=== PATIENT | male | born 1965 | race Caucasian/White ===

== ENCOUNTER 2017-03-14 14:12 | Emergency (ER) | payer BC ==
[2017-03-14] MEDS: DILTIAZEM HCL 25 MG/ 5ML VIAL IVP ONE (14:15)
--- NOTE | 2017-03-14 14:15 | ED Physician Documentation ---
General Adult - HISTORIAN Historian: patient - HPI Stated Complaint: tachycardia Chief Complaint: General Adult Onset: minutes Timing: still present Severity: moderate Further Comments: yes (Pt is a 52 yo male with hx afib with rvr who presents with tachcardia. Pt is lightheaded with near syncope at time of arrival and HR= 150's. No chest pain. Pt is sob. No diaphoresis, n/v. Pt appears anxious.) - ROS CONST: other (lightheaded) EYES/ENT: none CVS/RESP: other (tachycardia) GI/: none MS/SKIN/LYMPH: none - PAST HX Past History: other (afib with RVR) Surgeries/Procedures: other (hernia repair, ortho surgery) Allergies/Adverse Reactions: Allergies Allergy/AdvReac Type Severity Reaction Status Date / Time No Known Allergies Allergy Unverified 03/14/17 14:39 Home Medications: Ambulatory Orders Medication Instructions Recorded Metoprolol Succinate [Toprol XL] 25 mg PO DAILY 03/14/17 Propafenone HCl [Rythmol] 150 mg PO DAILY 03/14/17 Rivaroxaban [Xarelto] 20 mg PO PRN 03/14/17 - SOCIAL HX Smoking History: cigarettes - FAMILY HX Family History: No - REVIEWED ASSESSMENTS Nursing Assessment Reviewed: Yes Vitals Reviewed: Yes Progress - Progress Progress: Cardizem 20 mg IV Then Cardizem drip @ 5 mg/hr NS 500 cc IVF KCl 20 mEq po x 1 HR=90's pt comfortable Transfer to . Hosp. Dr. Gavin. - EKG/XRAY/CT EKG: rhythm (Afib with RVR; XM=[id number]; non-specific ST, T-wave changes.) XRAY: chest (No acute pulmonary process.) General Adult Physical Exam - PHYSICAL EXAM GENERAL APPEARANCE: moderate distress EENT: pharynx normal NECK: normal inspection, supple RESPIRATORY: no resp distress, chest non-tender, breath sounds normal CVS: no murmur, tachycardia ABDOMEN: soft, no organomegaly, normal bowel sounds BACK: normal inspection, no CVA tenderness SKIN: warm/dry, normal color EXTREMITIES: non-tender, normal range of motion, no evidence of injury NEURO: oriented X3, motor nml, sensation nml Discharge Clincal Impression: Atrial fibrillation with rapid ventricular response Referrals: Primary Doctor,No [Primary Care Provider] - Home Medications: Ambulatory Orders Metoprolol Succinate [Toprol XL] 25 mg PO DAILY 03/14/17 Propafenone HCl [Rythmol] 150 mg PO DAILY 03/14/17 Rivaroxaban [Xarelto] 20 mg PO PRN 03/14/17 Condition: Stable Disposition: 02 XFER SHT-TRM HOSP Decision to Admit: NO Decision Time: 16:03
[2017-03-14] MEDS ORDERED: DILTIAZEM HCL 25 MG/ 5ML VIAL ONE (14:16)
[2017-03-14] MEDS ORDERED: 0.9 % SODIUM CHLORIDE 100 ML IV ONE (14:20)
[2017-03-14] MEDS ORDERED: DILTIAZEM HCL 125 MG/25ML VIAL ONE (14:20)
[2017-03-14 14:24] LABS: BASOPHILS % 0.4 (0.0-1.5); EOSINOPHILS % 2.3 % (0.0-6.8); MEAN CORPUSCULAR HEMOGLOBIN 34.3 pg (28.0-34.0); MEAN CORPUSCULAR VOLUME 98.4 fl (80.0-100.0); MONOCYTES % 4.8 % (0.0-11.0); NEUTROPHILS # 6.3 # k/uL (1.4-7.7)
[2017-03-14] MEDS: DILTIAZEM HCL 125 MG in 0.9 % SODIUM CHLORIDE 100 ML IV STA (14:25)
[2017-03-14 14:38] LABS: eGFR (African) > 60; eGFR (Non-African) > 60
[2017-03-14] MEDS: 0.9 % SODIUM CHLORIDE 500 ML IV ONE (15:05)
[2017-03-14] MEDS ORDERED: 0.9 % SODIUM CHLORIDE 1,000 ML IV ONE (15:05)
--- NOTE | 2017-03-14 15:31 | Diagnostic Imaging Report ---
KACEY STAPLES [facility] [id number] [facility] [address] [place] [address]. [id number] Report Submission Date: Mar 14, 2017 3:28:51 PM CDT Patient Study Name: TERRENCE CAPELLAN Date: Mar 14, 2017 3:12:51 PM CDT Modality Type: CR Gender: M Description: CHEST : 61 Institution: [facility] Physician: KACEY STAPLES Examination: Portable chest History: Tachycardia. Comparison exams: None available Findings: Single view of the chest demonstrates a normal cardiac and mediastinal silhouette. Lung madden without focal infiltrate. No effusion. Osseous structures are appropriate for age. Old right 3rd and 4th rib fractures. Impression: No acute pulmonary process. Electronically signed on Mar 14, 2017 3:28:51 PM CDT by: Enrique MONTIEL
[2017-03-14] MEDS: POTASSIUM CHLORIDE 20 MEQ TABLET.ER PO ONE (15:40)
[2017-03-14 16:34] VITALS: BP 159/92
== END 2017-03-14 16:30 | disposition short-term general hospital (02) ==
LOC: ED 14:12
DX: I48.91 Unspecified atrial fibrillation (principal)
CPT/HCPCS: 71010; 80053; 82550; 84484; 85025; A9270; J3490; J7030; J7060; 96361; 96365; 99284; S1016